=== PATIENT | male | born 1980 | race Caucasian/White ===

== ENCOUNTER → 2016-09-19 | Outpatient (CLI) | payer OTHER ==
[~2016-09-19] MED LIST: ADVAIR 2501 DISK W/D PO; ALBUTEROL17 GM INH; CORTISPORIN-TC10 ML OT; DARVOCET-N 1001 TAB PO; DOXYCYCLINE PO; KEFLEX PO; LISINOPRIL-HCTZ1 T20 PO; MEDROL PO; MOBIC PO; NORCO 5/325 TAB1 TAB PO; NORFLEX100 M1 PO; PHENERGAN W/CO120 ML PO; RELENZA5 MG/DISK INH; ZITHROMAX PO
--- NOTE | ~2016-09-19 | CR181 ---
[facility]. [facility] A Service of [facility] & [facility] RADIOLOGY TEXT RESULTS PATIENT: HEATH GARCIA LOCATION: [facility] : 84 UNIT #: [id number] AGE: [address]: Teddy Capps SEX: M ORDER DR: [id number] [address] [address] [id number] O MR#: [id number] Acc #: [id number] NAME: HEATH GARCIA : 1980 SEX: M STUDY DATE/TIME: 09/19/2016 18:28 UNIT: [facility] ROOM: STUDY DESCRIPTION: CR Lumbar Spine 2 or 3 Views Attending Physician: Teddy Capps A.P.R.N. Referring Physician: Teddy Capps A.P.R.N. Ordering Physician: Teddy Capps A.P.R.N. Primary Care Physician: Best Jimenez M.D. MEDICAL IMAGING REPORT This report is preliminary unless electronic signature is present. EXAM Lumbar spine 4 views, 09/19/2016 HISTORY Low back pain for 4 months. No known injury. FINDINGS AP and lateral projections of the lumbar segment show good mineralization of both anterior and posterior elements. They are all anatomically normal without indication of fracture, dislocation, or malignant change of a sclerotic or lytic type. There is no congenital defect noted. The sacroiliac joints are normal. IMPRESSION Normal lumbar spine. Dictated by... Gareth Dan M.D. THIS IS AN ELECTRONICALLY VERIFIED REPORT Gareth Dan M.D. at 09/20/2016 5:04 PM [employer] TD: 09/20/2016 11:24 JOB #: [id number] MEDICAL IMAGING REPORT Page 1 of 1
--- NOTE | ~2016-09-19 | CR173 ---
[facility]. [facility] A Service of [facility] & [facility] RADIOLOGY TEXT RESULTS PATIENT: HEATH GARCIA LOCATION: [facility] : 84 UNIT #: [id number] AGE: [address]: Teddy Capps SEX: M ORDER DR: [id number] [address] [address] [id number] O MR#: [id number] Acc #: [id number] NAME: HEATH GARCAI : 1980 SEX: M STUDY DATE/TIME: 09/19/2016 18:28 UNIT: [facility] ROOM: STUDY DESCRIPTION: CR Knee 3 Views Rt Attending Physician: Teddy Capps A.P.R.N. Referring Physician: Teddy Capps A.P.R.N. Ordering Physician: Teddy Capps A.P.R.N. Primary Care Physician: Best Jimenez M.D. MEDICAL IMAGING REPORT This report is preliminary unless electronic signature is present. EXAM Right knee 3 views, 09/19/2016. HISTORY Right knee pain for 3 years. No known injury. FINDINGS Three views of the knee shows smooth articular anatomy without indication of fracture or dislocation at the major weight-bearing surface of the knee. There is no indication of radiopaque foreign body about the knee surface or joint effusion. IMPRESSION Normal knee. Dictated by... Gareth Dan M.D. THIS IS AN ELECTRONICALLY VERIFIED REPORT Gareth Dan M.D. at 09/20/2016 5:04 PM [facility] TD: 09/20/2016 11:19 JOB #: [id number] MEDICAL IMAGING REPORT Page 1 of 1
== END | disposition home or self-care (01) ==
LOC: SRAD 18:20
DX: M54.5 Low back pain (principal); M25.561 Pain in right knee
CPT/HCPCS: 72100; 73562